=== PATIENT | male | born 1990 | race Hispanic/Latino ===

== ENCOUNTER 2020-01-16 17:02 | Emergency (ER) | payer OTHER ==
[2020-01-17 13:50] LABS: SARS-CoV-2 MS2 Positive; SARS-CoV-2 N Gene Positive; SARS-CoV-2 S Gene Positive; SARS-CoV-2 orf1ab Positive
== END 2020-01-16 17:22 | disposition home or self-care (01) ==
LOC: ERS 17:02
DX: U07.1 COVID-19 (principal)
CPT/HCPCS: 87635; 99283; U0003